=== PATIENT | female | born 1960 | race Hispanic/Latino ===

== ENCOUNTER 2019-07-17 08:22 | Outpatient (CLI) | payer OTHER ==
--- NOTE | 2019-07-17 10:05 | ULT ---
Exam: Pelvic ultrasound including Transabdominal, imaging: HISTORY: Postmenopausal bleeding COMPARISON: None FINDINGS: The uterus is 11.7 x 7.1 x 5 cm Endometrial thickness:0.8 cm Right ovary:Not seen Left ovary:Not seen Multiple intrauterine fibroids demonstrated up to 3.2 x 3.6 x 3.8 cm. IMPRESSION: Numerous intrauterine fibroids up to 3.2 x 3.6 x 3.8 cm. Nonvisualized ovaries.
== END 2019-07-17 08:23 | disposition home or self-care (01) ==
LOC: BICULT 08:22
PROVIDERS: ATTEND Nurse Practitioner
DX: N95.0 Postmenopausal bleeding (principal); D25.9 Leiomyoma of uterus, unspecified
CPT/HCPCS: 76856